=== PATIENT | male | born 1995 | race Caucasian/White ===

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

== ENCOUNTER → 2017-05-06 | Outpatient (CLI) | payer BC, OTHER ==
[~2017-05-06] MED LIST changes: -ATROPINE SULFATE 0.1 MG/ML 5ML SYR IV PRN; -BUPIVACAINE 0.25% 2.5MG/ML PF 10 ML VIAL INFIL ONE; -BUPIVACAINE/EPINEPHRINE 0.5% MPF 1:200,000 30 ML VIAL ONE; -CEFAZOLIN 1000MG/55 ML D5W IV SCH; -DEXAMETHASONE SOD INJ 4 MG/ML VIAL ONE; -EpHEDrine SULFATE INJ 50 MG/ML AMP IV PRN; -FENTANYL CITRATE INJ 50 MCG/1 ML 2 ML VIAL IV PRN; -FENTANYL CITRATE INJ 50 MCG/1 ML 2 ML VIAL ONE; -GLYCOPYRROLATE INJ 0.2 MG/ML VIAL ONE; -LACTATED RINGER'S 1000ML 1,000 ML IV SCH; -LIDOCAINE HCL 1% 20 ML VIAL ONE; -LIDOCAINE HCL 2% 2 ML VIAL (20MG/ML) ONE; -MIDAZOLAM HCL 1 MG/ML 2ML VIAL ONE; -MoRPHine SULFATE 2 MG/ML CARP IV PRN; -MoRPHine SULFATE 4 MG/ML 1 ML CARP\\VIAL IV PRN; -NEOSTIGMINE METHYLSULFATE 5 MG/5 ML SYR ONE; -ONDANSETRON INJ 2 MG/ML 2 ML VIAL IV PRN; -ONDANSETRON INJ 2 MG/ML 2 ML VIAL ONE; -OXYCODONE/ACETAMINOPHEN 5-325 TAB PO PRN; -PROPOFOL IV EMULSION 10 MG/ML 20 ML VIAL IV ONE; -ROCURONIUM BROMIDE 10 MG/ML 5 ML VIAL ONE
--- NOTE | 2017-05-06 09:30 | DIAGNOSTIC IMAGING REPORT ---
LUMBAR SPINE MIN 4 VIEWS HISTORY: 22 years Male acute low back pain with muscles spasms COMPARISON: Lumbar spine radiographs 11/09/2016, bone scan 11/10/2016 TECHNIQUE: 5 views of the lumbar spine FINDINGS: 5 nonrib bearing lumbar type vertebral segments are present. The left L5 pars interarticularis is mildly sclerotic without definite pars defect identified. No acute fracture or dislocation is identified. No significant degenerative changes are intervertebral disc space narrowing. Soft tissues and abdominal structures are within normal limits. IMPRESSION: 1. No acute fracture, dislocation or significant degenerative changes identified. 2. Mildly increased sclerosis of the left L5 pars interarticularis without definite pars defect identified. The above report was generated using voice recognition software. It may contain grammatical, syntax or spelling errors. Electronically signed by: Junior Allen M.D. 05/06/2017 9:29 AM Dictated Date/Time: 05/06/2017 9:24 AM
== END ==
LOC: C.RDSM 09:19
PROVIDERS: ATTEND Family Medicine
DX: M54.5 Low back pain (principal)

== ENCOUNTER → 2017-12-13 | Outpatient (CLI) | payer BC, OTHER ==
--- NOTE | 2017-12-13 09:18 | DIAGNOSTIC IMAGING REPORT ---
L SHOULDER MIN 2 VIEWS CLINICAL HISTORY: 22 years-old Male presenting with LEFT SHOULDER PAIN. TECHNIQUE: Neutral, transscapular Y, and axillary views COMPARISON: None. FINDINGS: No acute fracture or malalignment. No advanced degenerative change. No radiographic soft tissue abnormality. IMPRESSION: No acute osseous injury of the left shoulder. Electronically signed by: Rudolph Marquez M.D. 12/13/2017 9:17 AM Dictated Date/Time: 12/13/2017 9:16 AM
== END | disposition home or self-care (01) ==
LOC: C.RDSM 01:37
PROVIDERS: ATTEND Family Medicine
DX: M25.512 Pain in left shoulder (principal)

== ENCOUNTER → 2018-03-03 | Outpatient (CLI) | payer BC, OTHER ==
[~2018-03-03] MED LIST changes: +GADAVIST IV PRN
--- NOTE | 2018-03-03 11:05 | DIAGNOSTIC IMAGING REPORT ---
L INJ MAJOR JNT SHLDR,HIP,KNEE CLINICAL HISTORY: 23 years-old Male presenting with L SHOULDER POSSIBLE LABRAL TEAR. COMPARISON: 12/13/2017. PROCEDURE: The risks, benefits, and alternatives to the procedure were discussed with the patient. Written informed consent was obtained. The patient was placed supine on the fluoroscopy table, and a left shoulder injection was performed under fluoroscopic guidance. The area was prepped and draped in the usual sterile fashion. The skin and soft tissues anesthetized with local 1% lidocaine. The left shoulder joint was accessed utilizing a 22-gauge needle, and approximately 12 cc of a mixture of gadolinium contrast, Optiray 300, and saline was injected into the joint space under fluoroscopic guidance. There was normal distention of the capsule. The procedure was well tolerated without immediate complication. The patient was then transferred to MRI for MR arthrography. Fluoroscopy dosage (mGy): Not available. Fluoroscopy time: 12 seconds. Number of fluoroscopic spot images: 0. IMPRESSION: Successful injection of the left shoulder under fluoroscopic guidance. Electronically signed by: Rudolph Marquez M.D. 03/03/2018 11:03 AM Dictated Date/Time: 03/03/2018 11:02 AM
--- NOTE | 2018-03-03 11:43 | DIAGNOSTIC IMAGING REPORT ---
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 TECHNIQUE: Multisequence, multiplanar MR imaging of the left shoulder was performed after the administration of intra-articular contrast. IV contrast: None. COMPARISON: Plain radiographs from 12/13/2017. FINDINGS: Localizer images: Unremarkable. Bone marrow: Normal bone marrow signal intensity. No bony edema. Articular cartilage: Articular cartilage preserved. Labrum: There is apparent deficiency of the anterior inferior glenoid labrum from 3:00 to 5:00. This is an atypical location for an anatomic variant. This could suggest chronic degenerative change. No focal labral tear. The superior, anterior, and middle glenohumeral ligaments are intact. Biceps and triceps tendons: Long head of the biceps tendon intact, including the biceps-labral complex. Long head of the biceps well seated in the intertubercular groove. Short head of the biceps tendon intact. Long head of the triceps tendon intact. Rotator cuff: Supraspinatus tendon intact. Infraspinatus tendon intact. Teres minor tendon intact. Subscapularis tendon intact. Acromioclavicular joint: Acromioclavicular joint intact. No significant degenerative change. No evidence of an os acromiale. Shoulder joint effusion: Expected intra-articular contrast distends the normal-appearing joint capsule. No significant fluid in the subacromial-subdeltoid bursa. Muscle: Normal muscle bulk and muscle signal intensity. Superficial soft tissue: No subcutaneous edema. IMPRESSION: Findings could suggest chronic degeneration of the anterior inferior glenoid labrum from 3:00 to 5:00, which appears deficient. This would be an atypical location for an anatomic variant. No other MR abnormality. Electronically signed by: Rudolph Marquez M.D. 03/03/2018 11:42 AM Dictated Date/Time: 03/03/2018 11:10 AM
== END | disposition home or self-care (01) ==
LOC: C.MRIBC 09:52
PROVIDERS: ATTEND Family Medicine
DX: M25.512 Pain in left shoulder (principal)